=== PATIENT | female | born 1940 | race Caucasian/White ===

== ENCOUNTER 2022-10-30 01:48 | Inpatient (IN) | payer MEDICARE ==
[~2022-10-30] VITALS: Ht 152.4 cm; Wt 40.8 kg
--- NOTE | 2022-10-30 02:00 | NUR ---
ALAN TREVINO BROUGHT D/T AGITATION, VERBAL AND PHYSICAL AGGRESSION TO STAFF. PT AO X 2, BREATHING UNLABORED, CALM AND COOPERATIVE AT THIS TIME. PT ATTACHED TO MONITOR AND PULSE OX. AWAITING MD HAZEL.
--- NOTE | 2022-10-30 02:12 | NUR ---
COVID SWAB DONE AND SENT TO LAB
--- NOTE | 2022-10-30 02:25 | NUR ---
URINE COLLECTED, SENT TO LAB
[2022-10-30 02:41] LABS: BASOPHILS % (AUTO) 0.3 % (0.0-2.0); EOSINOPHILS % (AUTO) 1.9 % (0.0-6.0); HEMATOCRIT 41 % (33-45); HEMOGLOBIN 13.4 g/dL (11.5-14.8); LYMPHOCYTES # (AUTO) 0.8 K/uL (0.8-4.8); LYMPHOCYTES % (AUTO) 12.8 % (20.0-44.0); MEAN CORPUSCULAR HGB CONC 33 g/dl (31.0-36.0); MEAN CORPUSCULAR VOLUME 96 fL (82-100); MONOCYTES # (AUTO) 0.6 K/uL (0.1-1.30); MONOCYTES % (AUTO) 9.3 % (2.0-12.0); NEUTROPHILS # (AUTO) 4.8 K/uL (1.8-8.9); NEUTROPHILS % (AUTO) 75.7 % (43.0-81.0); PLATELET COUNT (AUTO) 315 K/uL (150-450); RED BLOOD CELL COUNT(AUTO) 4.22 MIL/uL (4.0-5.2); WHITE BLOOD COUNT (AUTO) 6.4 K/uL (4.3-11.0)
[2022-10-30 02:48] LABS: BILIRUBIN,URINE NEGATIVE (NEGATIVE); COLOR,URINE YELLOW (YELLOW); LEUKOCYTE ESTERASE ,URINE NEGATIVE (NEGATIVE); NITRITE, URINE NEGATIVE (NEGATIVE); PROTEIN,URINE NEGATIVE (NEGATIVE); UGLUCOSE NEGATIVE (NEGATIVE); UROBILINOGEN,URINE 0.2 EU/dL (0.2)
[2022-10-30 03:00] LABS: CALCIUM, SERUM 9.2 mg/dL (8.5-10.1); CARBON DIOXIDE 26 mmol/L (21-32); CHLORIDE 108 mmol/L (98-107); CREATININE 0.7 mg/dL (0.6-1.3); GLUCOSE 116 mg/dL (74-106); SODIUM SERUM 140 mmol/L (136-145); UREA NITROGEN, BLOOD 22 mg/dL (7-18)
[2022-10-30 03:05] LABS: ALANINE AMINOTRANSFERASE 45 U/L (12-78); ALBUMIN 3.2 g/dL (3.4-5.0); ALCOHOL, BLOOD < 3 mg/dL (0-0); ALKALINE PHOSPHATASE 50 U/L (46-116); ASPARTATE AMINOTRANSFERASE 26 U/L (15-37); BILIRUBIN,DIRECT 0.1 mg/dL (0.0-0.2); BILIRUBIN,TOTAL 0.2 mg/dL (0.2-1.0); TOTAL PROTEIN, SERUM 6.8 g/dL (6.4-8.2)
[2022-10-30 03:13] LABS: ACETAMINOPHEN 0 ug/ml (10-30)
--- NOTE | 2022-10-30 03:33 | NUR ---
FADI OSUNA CALLED FOR PSYCH EVAL. WILL BE COMING IN AN HOUR
--- NOTE | 2022-10-30 04:11 | NUR ---
RM 219-1
--- NOTE | 2022-10-30 05:15 | NUR ---
FADI OSUNA AT BEDSIDE FOR EVAL
--- NOTE | 2022-10-30 05:25 | NUR ---
REPORT GIVEN TO TOYA WHITLEY FOR CONTINUATION OF CARE
--- NOTE | 2022-10-30 05:25 | NUR ---
Rody jeong in [facility] - 10/30/22 at 0549 by REGINALD REPORT GIVEN TO TOYA WHITLEY FOR CONTINUATION OF CARE
[2022-10-30] MEDS ORDERED: LOSARTAN POTASSIUM 50 MG TABLET ONE (05:29)
[2022-10-30] MEDS ORDERED: SENN-261 PO (05:57)
[2022-10-30] MEDS ORDERED: ACET-73 PO (05:57)
[2022-10-30] MEDS ORDERED: MAGN24002 PO (05:57)
[2022-10-30] MEDS ORDERED: LEVO200T8 PO (05:57)
[2022-10-30] MEDS ORDERED: CEPH500C2 PO (05:57)
[2022-10-30] MEDS ORDERED: HYDR-4076 PO (05:57)
[2022-10-30] MEDS ORDERED: DOCU100C36 PO (05:57)
[2022-10-30] MEDS ORDERED: OLAN5TAB3 PO (05:57)
[2022-10-30] MEDS ORDERED: LOSA50TA3 PO (05:57)
[2022-10-30] MEDS ORDERED: ONDA4TAB5 PO (05:57)
--- NOTE | 2022-10-30 05:58 | NUR ---
PT TRASNFERRED TO GPS 119-1, RN AND EMT AT BEDSIDE.
--- NOTE | 2022-10-30 06:14 | NUR ---
RN NOTES : ADMISSION NOTES: ADMITTED THIS 82Y/O FEMALE PATIENT ADMITTED FROM [facility], INITIALLY FROM [facility]. ADMITTED TO 5150 HOLD PER HOLD GD ,PT. INCREASED AGGRESSIVE BEHAVIOR AT ALF , UPON FACE TO FACE ASSESSMENT PATIENT IS A&OX1 , ANXIOUS EASILY AGITATED ,DISORGNIZED, DISHELVED,UNCOOPERTIVE,POOR DECISION MAKING,DENIES SI /HI AT THIS TIME, PT. IS POOR HISTORIAN, POOR INSIGHT ,POOR JUDGEMENT , BOTH MD AWARE AND NOTIFIED OF THE ADMISSION, BELONGINGS CONTRABAND WERE DONE , PT. REFUSED SIGNS ADMISSION CONSENT PAPER DUE TO CONFUSED,DISORGNIZED , PT. RIGHTS DISCUSS BY FIRE LOOKOUT , PROVIDE THE PT. WITH HANDBOOK, AND MEDICATIONS GUIDE, ENVIRONMENTAL SAFETY CHECK DONE, ENCOURAGED PT. VERBALIZED ANY FEELING CONCERN TO STAFF, ORIENT TO UNIT POLICY, NO ACUTE DISTRESS NOTED,VITAL SIGNS WNL ,DENIES ANY PAIN AT THIS TIME,WILL CONTINUE TO MONITOR FOR Q15 SAFETY AND BEHAVIOR.
--- NOTE | 2022-10-30 06:23 | NUR ---
RN NOTES: REFUSED SKIN ASSESSMENT AND ACCU CHECK PT. REFUSED FULL BODY SKIN ASSESSMENT AND PHOTOS TAKEN, AND REFUSED INTIALLY BLOOD SUGAR CHECK , ENCOURAGED X3 BUT PT. STRONGLY REFUSED , PT.BRHAVIOUR UNCOOPERTIVE , PARANOID ANXIOUS .
[2022-10-30 06:24] VITALS: BP 135/75
[2022-10-30] MEDS ORDERED: MAG HYDROX/AL HYDROX/SIMETH 30 ML UDC PO PRN (06:30)
[2022-10-30] MEDS ORDERED: MAGNESIUM HYDROXIDE 30 ML UDC PO PRN ×2 (06:30→11:00)
[2022-10-30] MEDS ORDERED: ACETAMINOPHEN 325 MG TABLET PO PRN (06:30)
[2022-10-30] MEDS ORDERED: ZOLPIDEM TARTRATE 5 MG TABLET PO PRN (06:30)
--- NOTE | 2022-10-30 06:57 | NUR ---
RN NOTES: PATIENT IS A&OX1 , ANXIOUS EASILY, AGITATED ,DISORGNIZED, DISHELVED,UNCOOPERTIVE,POOR DECISION MAKING, WANDRING IN HER ROOM AND UNIT ,FORGETFUL CONFUSED POOR INSIGHT ,POOR JUDGEMENT ,, NON REDIRECTABLE , NEEDS FREQUENTLY REDIRECTIONS , SAFETY PRECAUTIONS MAINTAIN, WILL CONTINUITY WITH CARE. . ENDORSE TO ON COMING NURSE FOR COMPLETE THE ALL ADMISSION PROCESS .
[2022-10-30] MEDS ORDERED: BLOOD SUGAR DIAGNOSTIC 1 EACH STRIP IN ONE (07:30)
[2022-10-30 08:00] VITALS: BP 155/56
[2022-10-30] MEDS ORDERED: LOSARTAN POTASSIUM 50 MG TABLET PO SCH (09:00)
[2022-10-30] MEDS ORDERED: MAGN400O6 PO (10:44)
[2022-10-30] MEDS ORDERED: ONDANSETRON 4 MG TAB.RAPDIS SL PRN (11:00)
[2022-10-30] MEDS ORDERED: ACETAMINOPHEN ES 500 MG TABLET PO PRN (11:00)
[2022-10-30] MEDS ORDERED: hydrALAZINE HCL 25 MG TABLET PO PRN (11:00)
[2022-10-30] MEDS: QUETIAPINE FUMARATE 25 MG TABLET PO SCH ×2 (11:25→20:18)
[2022-10-30 12:14] LABS: THYROID STIMULATING HORMONE 15.151 uIU/mL (0.358-3.74)
[2022-10-30 16:00] VITALS: BP 147/71
[2022-10-30] MEDS: LORAZEPAM 0.5 MG TABLET PO PRN (17:29)
[2022-10-30] MEDS: ENSURE ENLIVE 237 ML LIQUID (VANILLA) PO SCH (17:30)
[2022-10-30] MEDS: SENNOSIDES 8.6 MG TABLET PO SCH (17:30)
[2022-10-30] MEDS: DOCUSATE SODIUM 100 MG CAPSULE PO SCH (17:30)
--- NOTE | 2022-10-30 17:30 | NUR ---
NURSE NOTE: PT AGITATED AT THIS TIME, WANDERING, RESTLESS, GOING INTO OTHER PEOPLES ROOM. TRIED TO REDIRECT, BUT PT UNABLE TO. ATIVAN PO ADMINISTERED ORDERED. WILL CONT TO MONITOR.
--- NOTE | 2022-10-30 18:30 | NUR ---
NURSE NOTE: PT CALMER AT THIS TIME, BUT STILL ANXIOUS. WILL CONT TO MONITOR.
--- NOTE | 2022-10-30 18:35 | NUR ---
NURSE NOTE: PT REFUSED MEDS THIS AM AND ALSO REFUSED PM RISPERDOL. ENCOURAGED PT TO TAKE, BUT PT REFUSED. Addendum: 10/30/22 at 1921 by SINGH ADAMS RN ERROR WRONG PT.
[2022-10-30 20:10] VITALS: BP 139/68
[2022-10-31] MEDS: LORAZEPAM 0.5 MG TABLET PO PRN ×3 (00:12→16:06)
[2022-10-31 07:16] LABS: CALCIUM, SERUM 8.8 mg/dL (8.5-10.1); CREATININE 0.7 mg/dL (0.6-1.3); POTASSIUM 3.3 mmol/L (3.5-5.1)
--- NOTE | 2022-10-31 07:35 | NUR ---
NURSE NOTE: PT ANXIOUS/AGITATED AT THIS TIME. YELLING OUT FOR "JENNIFER". ATIVAN PO ADMINISTERED ORDERED. PT MARTIN WELL. WILL CONT TO MONITOR.
[2022-10-31] MEDS: LEVOTHYROXINE SODIUM 175 MCG TABLET PO SCH (07:37)
[2022-10-31 07:42] LABS: BASOPHILS % (AUTO) 0.5 % (0.0-2.0); EOSINOPHILS % (AUTO) 2.5 % (0.0-6.0); HEMATOCRIT 36 % (33-45); LYMPHOCYTES # (AUTO) 0.7 K/uL (0.8-4.8); LYMPHOCYTES % (AUTO) 10.1 % (20.0-44.0); MEAN CORPUSCULAR HGB CONC 33 g/dl (31.0-36.0); MEAN CORPUSCULAR VOLUME 97 fL (82-100); MONOCYTES # (AUTO) 0.8 K/uL (0.1-1.30); MONOCYTES % (AUTO) 11.6 % (2.0-12.0); NEUTROPHILS # (AUTO) 5.1 K/uL (1.8-8.9); NEUTROPHILS % (AUTO) 75.3 % (43.0-81.0); PLATELET COUNT (AUTO) 280 K/uL (150-450); RED BLOOD CELL COUNT(AUTO) 3.75 MIL/uL (4.0-5.2); WHITE BLOOD COUNT (AUTO) 6.8 K/uL (4.3-11.0)
[2022-10-31 08:00] VITALS: BP 126/59
[2022-10-31] MEDS: ENSURE ENLIVE 237 ML LIQUID (VANILLA) PO SCH ×2 (08:21→17:41)
[2022-10-31] MEDS: ESCITALOPRAM OXALATE (10 MG) 10 MG TABLET PO SCH (08:22)
[2022-10-31] MEDS: DOCUSATE SODIUM 100 MG CAPSULE PO SCH ×2 (08:22→16:08)
[2022-10-31] MEDS: LOSARTAN POTASSIUM 50 MG TABLET PO SCH (08:23)
[2022-10-31] MEDS: QUETIAPINE FUMARATE 25 MG TABLET PO SCH ×2 (08:24→20:01)
--- NOTE | 2022-10-31 08:30 | NUR ---
NURSE NOTE: PT CALM AT THIS TIME. ATIVAN EFFECTIVE. WILL CONT TO MONITOR.
[2022-10-31] MEDS ORDERED: POTASSIUM CHLORIDE 20 MEQ TAB.PRT.SR PO SCH (10:30)
--- NOTE | 2022-10-31 11:45 | NUR ---
NURSE NOTE: ATTEMPTED TO GET POTASSIUM CHLORIDE OUT OF [facility], BUT UNABLE TO. SPOKE WITH PHARMACY AND WILL SENIOR VALIDATION ENGINEER DOSE DOWN THERE.
--- NOTE | 2022-10-31 11:53 | NUR ---
BEV Initial Discharge Note: Patient currently resides at [facility] [address] [id number]; ([phone]). Pt's daughter Tracey ([phone]) is involved in pt's care. She is the DPOA and SW placed it in the chart. Daughter stated family is currently searching for a memory care unit in [place]. BEV will work with the MD, family, and pt to help coordinate appropriate discharge.
--- NOTE | 2022-10-31 11:53 | NUR ---
Treatment Plan: Pt refused to sign treatment plan due to confusion.
--- NOTE | 2022-10-31 11:53 | NUR ---
BEV Clinical Note: Pt placed on a 5150 hold for GD. Per hold, pt has been aggressive at her facility. [place] [address]; ([phone]). Pt's daughter Tracey ([phone]) is involved in pt's care. She is the DPOA and SW placed it in the chart. Daughter stated family is currently searching for a memory care unit in [place].
--- NOTE | 2022-10-31 11:57 | NUR ---
BEV Family Contact: Pt's daughter Tracey ([phone]) is involved in pt's care. She is the DPOA and SW placed it in the chart. Daughter stated family is currently searching for a memory care unit in [place]. SW discussed treatment/discharge plan with daughter.
--- NOTE | 2022-10-31 12:04 | NUR ---
Facility Contact: SW contacted [facility] ([phone]) and spoke with Duran falcon who stated pt is welcomed back.
[2022-10-31 16:00] VITALS: BP 113/54
--- NOTE | 2022-10-31 16:10 | NUR ---
NURSE NOTE: PT ANXIOUS AT THIS TIME. BANGING ON TABLE. ATIVAN PO ADMINISTERED ORDERED. PT MARTIN WELL. WILL CONT TO MONITOR.
--- NOTE | 2022-10-31 17:00 | NUR ---
NURSE NOTE: PT CALM AT THIS TIME, ATIVAN EFFECTIVE AT THIS TIME.
[2022-10-31] MEDS: SENNOSIDES 8.6 MG TABLET PO SCH (17:42)
[2022-10-31 20:05] VITALS: BP 127/66
--- NOTE | 2022-11-01 05:00 | NUR ---
RN NOTE PATIENT ASLEEP IN BED THROUGHOUT THE NIGHT. PATIENT WOKE UP AT THIS TIME AND HAD LARGE BOWEL MOVEMENT. GOOD PERICARE RENDERED. PATIENT NOTED WITH REDNESS ON HER RIGHT AND LEFT BUTTOCK. PHOTOS TAKEN AND PLACED IN THE CHART. NOTIFIED CASAN WITH NEW ORDER OF WOUND CARE CONSULT. CHARGE NURSE AWARE AND MELTER CLERK WELL. WILL TURN AND REPOSITION PATIENT PER PROTOCOL.
[2022-11-01] MEDS: Z GUARD REMEDY 4 OZ OINT TP SCH ×3 (05:37→21:10)
[2022-11-01 08:00] VITALS: BP 141/64
[2022-11-01] MEDS: LEVOTHYROXINE SODIUM 175 MCG TABLET PO SCH (08:12)
[2022-11-01] MEDS: DOCUSATE SODIUM 100 MG CAPSULE PO SCH ×2 (08:12→17:11)
[2022-11-01] MEDS: QUETIAPINE FUMARATE 25 MG TABLET PO SCH ×2 (08:13→21:09)
[2022-11-01] MEDS: ESCITALOPRAM OXALATE (10 MG) 10 MG TABLET PO SCH (08:13)
[2022-11-01] MEDS: LOSARTAN POTASSIUM 50 MG TABLET PO SCH (08:13)
[2022-11-01] MEDS: ENSURE ENLIVE 237 ML LIQUID (VANILLA) PO SCH ×2 (08:27→17:24)
--- NOTE | 2022-11-01 10:13 | NUR ---
[facility] Document: Dr. Sánchez filled out forms for GEORGIE Webb ([phone]) and for her brother pt's son Carlos. BEV gave documents to Zina and placed a copy in the chart.
[2022-11-01 16:00] VITALS: BP 102/53
[2022-11-01] MEDS: SENNOSIDES 8.6 MG TABLET PO SCH (17:11)
[2022-11-01 20:04] VITALS: BP 125/60
[2022-11-02 08:00] VITALS: BP 145/80
[2022-11-02] MEDS: LEVOTHYROXINE SODIUM 175 MCG TABLET PO SCH (08:27)
--- NOTE | 2022-11-02 08:28 | NUR ---
WOUND CARE CONSULT: CONSULT RECEIVED FOR RT/LEFT BUTTOCK REDNESS. NO REDNESS NOTED BUT PT IS VERY THIN AND BONY. DISCUSSED SKIN PROTECTION WITH NURSING STAFF. IN AGREEMENT WITH PLAN OF CARE.
[2022-11-02] MEDS: ENSURE ENLIVE 237 ML LIQUID (VANILLA) PO SCH ×2 (08:29→17:55)
[2022-11-02] MEDS: QUETIAPINE FUMARATE 25 MG TABLET PO SCH ×2 (08:55→21:36)
[2022-11-02] MEDS: DOCUSATE SODIUM 100 MG CAPSULE PO SCH ×2 (08:55→17:00)
[2022-11-02] MEDS: ESCITALOPRAM OXALATE (10 MG) 10 MG TABLET PO SCH (08:55)
[2022-11-02] MEDS: LOSARTAN POTASSIUM 50 MG TABLET PO SCH (08:55)
[2022-11-02] MEDS: Z GUARD REMEDY 4 OZ OINT TP SCH ×2 (09:56→21:37)
--- NOTE | 2022-11-02 10:13 | NUR ---
LETTER: PER PT'S DAUGHTER KALIN EDWARDS ([phone]) REQUESTED A LETTER FROM THE PSYCHIATRIST THAT PT IS NOT CAPABLE OF MANAGING HER FINANCES. DR. WEINBERG AND THIS GROUND WATER TECHNICIAN WROTE A LETTER PT IS NOT CAPABLE OF MANAGING FIANCES AT THIS THIS TIME. SW PLACED A COPY IN THE CHART.
--- NOTE | 2022-11-02 10:29 | NUR ---
Court Notification: SW contacted pt's daughter JERRY Izaguirre ([phone]) and notified of 5250 hearing.
--- NOTE | 2022-11-02 10:45 | NUR ---
Court Hearing: Patient's court hearing for 7930 was today and it was upheld for GD.
[2022-11-02 16:00] VITALS: BP 125/66
[2022-11-02] MEDS: SENNOSIDES 8.6 MG TABLET PO SCH (17:56)
[2022-11-02 20:43] VITALS: BP 151/73
[2022-11-02] MEDS: ATORVASTATIN 10 MG TABLET PO SCH (21:36)
[2022-11-03] MEDS: LEVOTHYROXINE SODIUM 175 MCG TABLET PO SCH (07:46)
[2022-11-03 08:00] VITALS: BP 124/50
[2022-11-03] MEDS: DOCUSATE SODIUM 100 MG CAPSULE PO SCH ×2 (08:23→16:42)
[2022-11-03] MEDS: ESCITALOPRAM OXALATE (10 MG) 10 MG TABLET PO SCH (08:23)
[2022-11-03] MEDS: QUETIAPINE FUMARATE 25 MG TABLET PO SCH ×2 (08:23→21:34)
[2022-11-03] MEDS: LOSARTAN POTASSIUM 50 MG TABLET PO SCH (08:24)
[2022-11-03] MEDS: ENSURE ENLIVE 237 ML LIQUID (VANILLA) PO SCH ×2 (08:45→17:19)
[2022-11-03] MEDS: Z GUARD REMEDY 4 OZ OINT TP SCH ×2 (08:48→21:34)
--- NOTE | 2022-11-03 10:25 | NUR ---
RN Notes: Received pt. asleep in bed, breathing is even and unlabored. Ate 100% for breakfast and compliant on meds. Pt. is confused and disoriented, was reoriented to person, place, date, date and situation and encouraged to participate on group activity. Needs attended and will continue to monitor for safety.
[2022-11-03] MEDS: LORAZEPAM 0.5 MG TABLET PO PRN (12:47)
--- NOTE | 2022-11-03 12:47 | NUR ---
pt is anxious, and slightly agitated. expert medical writer gave pt ativan 0.5mg. will continue to olga.
--- NOTE | 2022-11-03 13:47 | NUR ---
Facility Contact: BEV received a call from Pati Nguyen Director, [facility], , requesting clinicals to be faxed to ([phone]). SW sent H & P, progress notes, and medication list.
[2022-11-03 16:00] VITALS: BP 145/69
[2022-11-03] MEDS: SENNOSIDES 8.6 MG TABLET PO SCH (17:19)
--- NOTE | 2022-11-03 19:30 | NUR ---
GPS RN NOTE, RECEIVED PATIENT AWAKE AND IN BED, NO S/S OR COMPLAINTS OF PAIN AT THIS TIME. PATIENT IS DISPLAYING NO S/S OF APPARENT DISTRESS AT THIS TIME. PATIENT BREATHING IS UNLABORED WITH EQUAL RISE AND FALL OF THE CHEST. PATIENT IS ALERT AND ORIENTED X 1 ON ROOM AIR WITH A SPO2 99%. PATIENT IS COMPLIANT WITH MEDICATION, ANXIOUS, RESTLESS, PARANOID AT TIMES, CONFUSED, AND COOPERATIVE. PATIENT DENIES SUICIDAL AND HOMICIDAL IDEATIONS AT THIS TIME. PATIENT ASSISTED WITH TURNING AND REPOSITIONING Q2HR AND PRN FOR COMFORT AND CIRCULATION. PATIENT HAS NO NEEDS AT THIS TIME. PATIENT EDUCATED ON THE USE OF THE CALL ALDANA. PATIENT BED SIDE RAILS UP X 2 FOR SAFETY. PATIENT BED IS LOCKED AND LOW. WILL CONTINUE TO MONITOR THIS PATIENT Q15 MINUTES WITH THE HELP OF STAFF TO MAINTAIN SAFETY.
[2022-11-03 20:22] VITALS: BP 124/71
[2022-11-03] MEDS: ATORVASTATIN 10 MG TABLET PO SCH (21:34)
[2022-11-04 08:00] VITALS: BP 111/60
[2022-11-04] MEDS: DOCUSATE SODIUM 100 MG CAPSULE PO SCH ×2 (08:08→17:00)
[2022-11-04] MEDS: LOSARTAN POTASSIUM 50 MG TABLET PO SCH (08:09)
[2022-11-04] MEDS: ENSURE ENLIVE 237 ML LIQUID (VANILLA) PO SCH ×2 (08:10→17:11)
[2022-11-04] MEDS: Z GUARD REMEDY 4 OZ OINT TP SCH ×2 (08:10→20:30)
[2022-11-04] MEDS: ESCITALOPRAM OXALATE (10 MG) 10 MG TABLET PO SCH (08:12)
[2022-11-04] MEDS: QUETIAPINE FUMARATE 25 MG TABLET PO SCH ×2 (08:12→20:29)
[2022-11-04] MEDS: LEVOTHYROXINE SODIUM 175 MCG TABLET PO SCH (08:12)
[2022-11-04] MEDS: LORAZEPAM 0.5 MG TABLET PO PRN ×2 (12:35→22:41)
[2022-11-04 16:00] VITALS: BP 128/63
[2022-11-04] MEDS: SENNOSIDES 8.6 MG TABLET PO SCH (17:11)
--- NOTE | 2022-11-04 19:38 | NUR ---
RN NOTES: PATIENT RESTING IN ROOM,A/OX1 BREATHING EVEN AND UNLABORED WITH NO S/S OF DISTRESS. PATIENT IS ANXIOUS, GUARDED, PARNOID, HYPERVERBAL ,CONFUSED FORGETFUL , UNCCOPERTIVE NEEDY PATIENT IS MEDICATION COMPLIANT. ENCOURAGED PATIENT TO VERBALIZED ANY FEELING OR CONCERN . DENIES SI/HI AND AUDITORY/VISUAL HALLUCINATIONS AT THIS TIME. WILL CONTINUE TO MONITOR Q 15 MINUTES FOR SAFETY AND BEHAVIOR.
[2022-11-04 20:00] VITALS: BP 144/72
[2022-11-04] MEDS: ATORVASTATIN 10 MG TABLET PO SCH (22:10)
--- NOTE | 2022-11-04 22:42 | NUR ---
RN NOTES: ANXIETY PT.UNCOOPERTIVE SCREAMING YELLING , VERY ANXIOUS NON REDIREECTABLE PRN ATIVAN 0.5 MG PO GIVEN WILL CONTINUE TO MONITOR.
--- NOTE | 2022-11-05 05:47 | NUR ---
RN NOTES: PATIENT RESTING IN ROOM AND 7 HOURS OF SLEEP NO S/SX OF ACUTE DISTRESS NOTED. PATIENT ANXIOUS EASILY AGITATED, CONFUSED ,PARANOID,DISORGNIZED, HYPERVERBAL, FORGETFUL ,MED COMPLIANT , COOPERATIVE TO CARE.ALL NEEDS ATTENDED AND ANTICIPATED, NEEDS FREQUENTLY REDIRECTIONS, DENIES SI/HI/AVH AT THIS TIME. SAFETY PRECAUTIONS MAINTAINED. ENCOURAGED TO VERBALIZED ANY FEELING OR CONCERN ,WILL CONTINUE TO MONITOR Q15MIN ROUNDS FOR SAFETY AND BEHAVIOR.
[2022-11-05 08:00] VITALS: BP 145/73
[2022-11-05] MEDS: DOCUSATE SODIUM 100 MG CAPSULE PO SCH ×2 (08:22→17:00)
[2022-11-05] MEDS: ENSURE ENLIVE 237 ML LIQUID (VANILLA) PO SCH ×2 (09:16→17:13)
[2022-11-05] MEDS: LEVOTHYROXINE SODIUM 175 MCG TABLET PO SCH (09:18)
[2022-11-05] MEDS: ESCITALOPRAM OXALATE (10 MG) 10 MG TABLET PO SCH (09:18)
[2022-11-05] MEDS: QUETIAPINE FUMARATE 25 MG TABLET PO SCH ×2 (09:19→21:07)
[2022-11-05] MEDS: LOSARTAN POTASSIUM 50 MG TABLET PO SCH (09:19)
[2022-11-05] MEDS: Z GUARD REMEDY 4 OZ OINT TP SCH ×2 (09:20→20:47)
[2022-11-05 16:00] VITALS: BP 106/53
[2022-11-05] MEDS: SENNOSIDES 8.6 MG TABLET PO SCH (17:13)
[2022-11-05 20:20] VITALS: BP 125/60
[2022-11-05] MEDS: LORAZEPAM 0.5 MG TABLET PO PRN (20:22)
--- NOTE | 2022-11-05 20:24 | NUR ---
RN NOTES : ANXIETY PT. NOTED RESTLESS VERY ANXIOUS NON REDIREECTABLE PRN ATIVAN 0.5 MG PO GIVEN WILL CONTINUE TO MONITOR.
[2022-11-05] MEDS: ATORVASTATIN 10 MG TABLET PO SCH (21:07)
[2022-11-06 08:00] VITALS: BP 98/49
[2022-11-06] MEDS: DOCUSATE SODIUM 100 MG CAPSULE PO SCH ×2 (08:48→16:55)
[2022-11-06] MEDS: Z GUARD REMEDY 4 OZ OINT TP SCH ×2 (08:49→20:08)
[2022-11-06] MEDS: LOSARTAN POTASSIUM 50 MG TABLET PO SCH (08:49)
[2022-11-06] MEDS: ENSURE ENLIVE 237 ML LIQUID (VANILLA) PO SCH ×2 (08:49→16:55)
[2022-11-06] MEDS: QUETIAPINE FUMARATE 25 MG TABLET PO SCH ×2 (08:51→20:08)
[2022-11-06] MEDS: ESCITALOPRAM OXALATE (10 MG) 10 MG TABLET PO SCH (08:51)
[2022-11-06] MEDS: LEVOTHYROXINE SODIUM 175 MCG TABLET PO SCH (08:51)
[2022-11-06 16:00] VITALS: BP 117/68
[2022-11-06] MEDS: SENNOSIDES 8.6 MG TABLET PO SCH (16:55)
--- NOTE | 2022-11-06 19:30 | NUR ---
RN OPENING NOTES RECEIVED PATIENT AWAKE IN BED. AMBULATORY. GOT CONFUSED WITH THE ROM. A/O TIMES 1. COOPERATIVE. FORGETFUL. ABLE TO MAKE NEEDS KNOWN. ALL NEEDS ATTENDED. NO ANXIETY NOTED. NO DISTRESS NOTED. ALL SAFETY MEASURES IN PLACE. BED LOCKED IN THE LOWEST POSITION. TABLE IN EASY REACH. SIDE RAILS UP TIMES 2. WILL CONTINUE TO MONITOR CLOSELY.
[2022-11-06 20:27] VITALS: BP 117/68
[2022-11-06] MEDS: ATORVASTATIN 10 MG TABLET PO SCH (21:01)
[2022-11-07] MEDS: LEVOTHYROXINE SODIUM 175 MCG TABLET PO SCH (07:41)
[2022-11-07] MEDS: ENSURE ENLIVE 237 ML LIQUID (VANILLA) PO SCH ×2 (07:42→17:12)
[2022-11-07 08:00] VITALS: BP 144/67
[2022-11-07] MEDS: QUETIAPINE FUMARATE 25 MG TABLET PO SCH ×2 (08:56→20:25)
[2022-11-07] MEDS: ESCITALOPRAM OXALATE (10 MG) 10 MG TABLET PO SCH (08:56)
[2022-11-07] MEDS: DOCUSATE SODIUM 100 MG CAPSULE PO SCH ×2 (08:56→17:11)
[2022-11-07] MEDS: LOSARTAN POTASSIUM 50 MG TABLET PO SCH (08:57)
[2022-11-07] MEDS: Z GUARD REMEDY 4 OZ OINT TP SCH ×2 (09:48→20:27)
--- NOTE | 2022-11-07 11:12 | NUR ---
SW Family Contact: Pt's daughter Tracey ([phone]) stated that she had found a facility [facility] but stated it might take some time to get the financial part ready. She stated that if this does not work she would want pt back to [facility] if accepting back until she has everything set at [place].
[2022-11-07 16:00] VITALS: BP 117/58
[2022-11-07] MEDS: SENNOSIDES 8.6 MG TABLET PO SCH (17:51)
[2022-11-07 19:47] VITALS: BP 139/83
[2022-11-07] MEDS: ATORVASTATIN 10 MG TABLET PO SCH (21:19)
[2022-11-08 08:00] VITALS: BP 111/65
[2022-11-08] MEDS: ENSURE ENLIVE 237 ML LIQUID (VANILLA) PO SCH ×2 (08:14→17:14)
[2022-11-08] MEDS: ESCITALOPRAM OXALATE (10 MG) 10 MG TABLET PO SCH (08:52)
[2022-11-08] MEDS: LEVOTHYROXINE SODIUM 175 MCG TABLET PO SCH (08:53)
[2022-11-08] MEDS: DOCUSATE SODIUM 100 MG CAPSULE PO SCH ×2 (08:53→16:31)
[2022-11-08] MEDS: LOSARTAN POTASSIUM 50 MG TABLET PO SCH (08:54)
[2022-11-08] MEDS: QUETIAPINE FUMARATE 25 MG TABLET PO SCH ×2 (08:56→21:19)
[2022-11-08] MEDS: Z GUARD REMEDY 4 OZ OINT TP SCH ×2 (09:57→21:21)
[2022-11-08 16:00] VITALS: BP 130/97
[2022-11-08] MEDS: SENNOSIDES 8.6 MG TABLET PO SCH (17:14)
[2022-11-08 20:08] VITALS: BP 140/57
[2022-11-08] MEDS: ATORVASTATIN 10 MG TABLET PO SCH (21:19)
[2022-11-09 08:00] VITALS: BP 150/79
[2022-11-09] MEDS: QUETIAPINE FUMARATE 25 MG TABLET PO SCH ×2 (08:11→20:41)
[2022-11-09] MEDS: DOCUSATE SODIUM 100 MG CAPSULE PO SCH ×2 (08:12→16:56)
[2022-11-09] MEDS: LOSARTAN POTASSIUM 50 MG TABLET PO SCH (08:12)
[2022-11-09] MEDS: ESCITALOPRAM OXALATE (10 MG) 10 MG TABLET PO SCH (08:12)
[2022-11-09] MEDS: LEVOTHYROXINE SODIUM 175 MCG TABLET PO SCH (08:12)
[2022-11-09] MEDS: ENSURE ENLIVE 237 ML LIQUID (VANILLA) PO SCH ×2 (08:13→17:29)
[2022-11-09] MEDS: Z GUARD REMEDY 4 OZ OINT TP SCH ×2 (08:13→20:45)
[2022-11-09] MEDS: LORAZEPAM 0.5 MG TABLET PO PRN (14:31)
--- NOTE | 2022-11-09 14:31 | NUR ---
NURSE NOTE: PT ANXIOUS AT THIS TIME, TELLING THE RAILROAD INSPECTOR THAT SHE WAS GOING TO CALL THE POLICE. ATIVAN PO ADMINISTERED ORDERED. PT MARTIN WELL. WILL CONT TO MONITOR.
--- NOTE | 2022-11-09 15:30 | NUR ---
NURSE NOTE: PT CALMER NOW. STILL A LITTLE RESTLESS. ATIVAN SL EFFECTIVE. WILL CONT TO MONITOR.
[2022-11-09 16:00] VITALS: BP 120/71
--- NOTE | 2022-11-09 17:00 | NUR ---
NURSE NOTE: PT HAVING LOOSE STOOLS. DR ASTUDILLO NOTIFIED AND DC'D STOOL SOFTENERS. REDNESS NOTED TO AREA, WOUND CONSULT ORDERED. WILL CONT TO MONITOR.
[2022-11-09] MEDS: SENNOSIDES 8.6 MG TABLET PO SCH (17:30)
--- NOTE | 2022-11-09 19:25 | NUR ---
RN notes Received Pt from morning nurse. Pt is resting in bed comfortably. Pt is alert and orientedX1, anxious, guarded, isolative and disorganized. VS is stable. On room air. No S/S of distress noted. No SOB. Snacks is offered. Reality orientation provided and encouragement. safety precautions is maintained. Will continue to monitor Q 15 mins checks for safety and behavior.
[2022-11-09] MEDS: ATORVASTATIN 10 MG TABLET PO SCH (20:41)
[2022-11-09 21:00] VITALS: BP 142/82
[2022-11-10 08:00] VITALS: BP 134/78
[2022-11-10] MEDS: LEVOTHYROXINE SODIUM 175 MCG TABLET PO SCH (08:29)
[2022-11-10] MEDS: ESCITALOPRAM OXALATE (10 MG) 10 MG TABLET PO SCH (08:29)
[2022-11-10] MEDS: LOSARTAN POTASSIUM 50 MG TABLET PO SCH (08:29)
[2022-11-10] MEDS: ENSURE ENLIVE 237 ML LIQUID (VANILLA) PO SCH ×2 (08:29→17:25)
[2022-11-10] MEDS: QUETIAPINE FUMARATE 25 MG TABLET PO SCH ×2 (08:29→21:35)
[2022-11-10] MEDS: Z GUARD REMEDY 4 OZ OINT TP SCH ×2 (08:32→21:35)
[2022-11-10 16:00] VITALS: BP 135/68
--- NOTE | 2022-11-10 18:09 | NUR ---
RN-NOTES PATIENT IS VISIBLE IN THE UNIT ,GUARDED,A/O X1 NEEDS MODERATE ASSIST WITH AMBULATION AND ADL'S.NO ACUTE DISTRESS NOTED. COMPLIANT WITH MEDICATIONS. PATIENT QUIET,CALM AND COOPERATIVE WITH THE STAFF. NEEDS DIRECTIONS AND INSTRUCTIONS. ALL NEEDS ATTENDED AND ANTICIPATED. WILL CONT. MONITORING FOR SAFETY AND BEHAVIOR.WILL ENDORSE TO THE INCOMING NURSE FOR THE CONTINUITY OF CARE.
--- NOTE | 2022-11-10 19:30 | NUR ---
GPS RN OPENING NOTE RECEIVED PATIENT WALKING THE UNIT WITH FAMILY MEMBER. A/O X1, FLAT AFFECT AND ABLE TO MAKE NEEDS KNOWN. NO ACUTE DISTRESS NOTED AT THIS TIME. ALL NEEDS ATTENDED ANTICIPATED AT THIS TIME. WILL CONTINUE TO MONITOR FOR SAFETY AND BEHAVIOR.
[2022-11-10 20:53] VITALS: BP 130/62
[2022-11-10] MEDS: ATORVASTATIN 10 MG TABLET PO SCH (21:35)
[2022-11-11] MEDS: LEVOTHYROXINE SODIUM 175 MCG TABLET PO SCH (07:37)
--- NOTE | 2022-11-11 07:41 | NUR ---
WOUND CARE CONSULT: PT PRESENTS WITH SOME FECAL INCONTINENCE AND REDNESS TO GLUTEAL CREASE. RECOMMENDATIONS MADE FOR SKIN PROTECTION. DISCUSSED WITH NURSING STAFF.
[2022-11-11] MEDS: ENSURE ENLIVE 237 ML LIQUID (VANILLA) PO SCH (07:59)
[2022-11-11 08:00] VITALS: BP 123/64
--- NOTE | 2022-11-11 08:04 | NUR ---
SW Discharge Note: Patient will be discharged to [facility] [place] [address] [place] [address]; . Please arrange transportation at 1PM. Admissions Duran ([phone]) is aware of patients discharge. Patient is alert and oriented x1. Patient denies suicidal or homicidal ideation. Patient denies visual/auditory hallucinations. Patients DPOA Daughter Zina ([phone]) is aware and agreeable of discharge. Patient will follow up with Ore Roaster, Dr. Winkler at the facility [id number] [place] [id number]; who will monitor and provide patients psychotropic medications. Patient presents with euthymic mood and congruent affect.
[2022-11-11] MEDS: ESCITALOPRAM OXALATE (10 MG) 10 MG TABLET PO SCH (08:45)
[2022-11-11] MEDS: QUETIAPINE FUMARATE 25 MG TABLET PO SCH (08:45)
[2022-11-11 08:46] VITALS: BP 123/64
[2022-11-11] MEDS: LOSARTAN POTASSIUM 50 MG TABLET PO SCH (08:46)
--- NOTE | 2022-11-11 08:46 | NUR ---
Dr. Sánchez gave an order to D/C hold and D/C to [facility] and to continue same meds including prn.
[2022-11-11] MEDS: Z GUARD REMEDY 4 OZ OINT TP SCH (08:59)
--- NOTE | 2022-11-11 09:48 | NUR ---
Duran GARCIA made aware of the discharge and reconciled meds to continue in the facility.
--- NOTE | 2022-11-11 12:00 | NUR ---
RN NOTE REPORT GIVEN [facility] TO AKI WHITLEY.
--- NOTE | 2022-11-11 13:20 | NUR ---
SILVER DESIGNER NOTE PATIENT DISCHARGE TO [facility],SNF,IN STABLE CONDITION,ALERT ORIENTED X1-2 VERBALLY RESPONSIVE ON ROOM AIR O2:98%,NO SOB NOT ACUTE DISTRESS NOTED,PATIENT DENIES SUICIDAL IDEATION AND HOMICIDAL IDEATION,PATIENT LEFT HOSPITAL WITH 2 EMT FROM [facility],NOTIFIED PATIENT FAMILY.
== END 2022-11-11 13:20 | DRG 881 ==
LOC: ER 01:50 → GPS 05:19
PROVIDERS: ADMIT Psychiatry & Neurology Psychiatry; ATTEND Nurse Practitioner Acute Care
DX: F32.A Depression, unspecified (principal); E43 Unspecified severe protein-calorie malnutrition; F03.93 Unspecified dementia, unspecified severity, with mood disturbance; F03.92 Unspecified dementia, unspecified severity, with psychotic disturbance; Z68.1 Body mass index [BMI] 19.9 or less, adult; F03.94 Unspecified dementia, unspecified severity, with anxiety; F29 Unspecified psychosis not due to a substance or known physiological condition; I10 Essential (primary) hypertension; Z79.899 Other long term (current) drug therapy; E03.9 Hypothyroidism, unspecified; Z73.6 Limitation of activities due to disability; R79.89 Other specified abnormal findings of blood chemistry; F41.9 Anxiety disorder, unspecified
CPT/HCPCS: 36415; 70450-TC; 80048-TC; 80061-TC; 80076-TC; 82607-TC; 82962-TC; 84439-TC; 84443-TC; 84480; 85025-TC; 87081-TC; 97116-TC; 97530-TC; C9803; G0480

== ENCOUNTER 2022-11-12 19:20 | Inpatient (IN) | payer MEDICARE ==
[~2022-11-12] VITALS: Ht 152.4 cm; Wt 47.6 kg
[~2022-11-12 19:20] MED LIST: ACET-73 PO; CEPH500C2 PO; DOCU100C36 PO; HYDR-4076 PO; LEVO200T8 PO; LOSA50TA3 PO; MAGN400O6 PO; ONDA4TAB5 PO; SENN-261 PO
--- NOTE | 2022-11-12 19:45 | NUR ---
JUANA FROM [facility]. MEDICAL CLEARANCE FOR PSYCH EVAL FOR AGGRESSIVE BEHAVIOR. PLACED IN BED, AAOX3, CALM- COOPERATIVE WILL CONTINUE TO MONITOR.
--- NOTE | 2022-11-12 19:52 | NUR ---
MOVE SHEET SUBMITTED.
--- NOTE | 2022-11-12 20:00 | NUR ---
IT INTEGRATION ARCHITECT AT BEDSIDE
[2022-11-12 20:18] LABS: BASOPHILS % (AUTO) 0.6 % (0.0-2.0); EOSINOPHILS % (AUTO) 2.4 % (0.0-6.0); HEMATOCRIT 36 % (33-45); HEMOGLOBIN 11.8 g/dL (11.5-14.8); LYMPHOCYTES # (AUTO) 0.8 K/uL (0.8-4.8); LYMPHOCYTES % (AUTO) 13.1 % (20.0-44.0); MEAN CORPUSCULAR HGB CONC 33 g/dl (31.0-36.0); MEAN CORPUSCULAR VOLUME 96 fL (82-100); MONOCYTES # (AUTO) 0.8 K/uL (0.1-1.30); MONOCYTES % (AUTO) 13.7 % (2.0-12.0); NEUTROPHILS # (AUTO) 4.3 K/uL (1.8-8.9); NEUTROPHILS % (AUTO) 70.2 % (43.0-81.0); PLATELET COUNT (AUTO) 287 K/uL (150-450); RED BLOOD CELL COUNT(AUTO) 3.73 MIL/uL (4.0-5.2); WHITE BLOOD COUNT (AUTO) 6.1 K/uL (4.3-11.0)
[2022-11-12 20:27] LABS: CALCIUM, SERUM 9.2 mg/dL (8.5-10.1); CARBON DIOXIDE 28 mmol/L (21-32); CHLORIDE 107 mmol/L (98-107); CREATININE 0.7 mg/dL (0.6-1.3); GLUCOSE 110 mg/dL (74-106); POTASSIUM 4.3 mmol/L (3.5-5.1); SODIUM SERUM 140 mmol/L (136-145); UREA NITROGEN, BLOOD 27 mg/dL (7-18)
[2022-11-12] MEDS ORDERED: MAGNESIUM HYDROXIDE 30 ML UDC PO PRN (20:30)
[2022-11-12] MEDS ORDERED: hydrALAZINE HCL 25 MG TABLET PO PRN (20:30)
[2022-11-12] MEDS ORDERED: ACETAMINOPHEN ES 500 MG TABLET PO PRN (20:30)
[2022-11-12 20:32] LABS: ACETAMINOPHEN < 10 ug/ml (10-30); ALANINE AMINOTRANSFERASE 23 U/L (12-78); ALCOHOL, BLOOD < 3 mg/dL (0-0); ALKALINE PHOSPHATASE 68 U/L (46-116); ASPARTATE AMINOTRANSFERASE 15 U/L (15-37); BILIRUBIN,DIRECT 0.1 mg/dL (0.0-0.2); BILIRUBIN,TOTAL 0.2 mg/dL (0.2-1.0); TOTAL PROTEIN, SERUM 6.4 g/dL (6.4-8.2)
--- NOTE | 2022-11-12 21:40 | NUR ---
URINE SAMPLE SENT TO LAB
--- NOTE | 2022-11-12 22:04 | NUR ---
CALLED LAY OUT MAKER ENRRIQUE. NO ANSWER, LEFT VM.
--- NOTE | 2022-11-12 22:11 | NUR ---
SPOKE WITH PRINTER SLOTTER OPERATOR ENRRIQUE. AL 60 MIN FOR EVAL.
--- NOTE | 2022-11-12 23:30 | NUR ---
PATIENT ON HOLD 7806 GRAVELY DISABLED PERSON FORMS FILLED AND SIGNED BY ENRRIQUE LEEDICTAPHONE MECHANIC.
[2022-11-12 23:39] LABS: BILIRUBIN,URINE NEGATIVE (NEGATIVE); COLOR,URINE YELLOW (YELLOW); LEUKOCYTE ESTERASE ,URINE NEGATIVE (NEGATIVE); NITRITE, URINE NEGATIVE (NEGATIVE); PROTEIN,URINE NEGATIVE (NEGATIVE); UGLUCOSE NEGATIVE (NEGATIVE); UROBILINOGEN,URINE 0.2 EU/dL (0.2)
--- NOTE | 2022-11-13 00:02 | NUR ---
REPORT GIVEN TO TOYA WHITLEY ROOM 219-1 FOR ROLLY
--- NOTE | 2022-11-13 00:07 | NUR ---
SWAB FOR COVID19 SENT TO LAB
[2022-11-13] MEDS ORDERED: ONDANSETRON 4 MG TAB.RAPDIS PO PRN (00:30)
--- NOTE | 2022-11-13 01:30 | NUR ---
GPS ADMISSION NOTE,RECEIVED PATIENT FROM [facility] ARRIVED AT THIS UNIT AT 0130 VIA STRETCHER WITH 1 INSTITUTIONAL RESEARCH COORDINATOR ESCORT.PATIENT ADMITTED ON 5150 HOLD FOR GD.PER HOLD PATIENT BECAME EXTREMELY AGITATED,AGGRESSIVE AND VIOLENTLY REACTED.PATIENT IS INCAPABLE OF ARTICULATING PLAN OF SELF CARE.THE 5150 WAS REVIEWED AND THE DOCUMENTATION IN THE 5150 HOLD APPEARS TO REFLECT THE PRESENTATION OF THE PATIENT.UPON FACE TO FACE ASSESSMENT.PATIENT IS NOTED TO BEING HYPERVERBAL ,DISHEVELED ,DISORGANIZED,DEMANDING UNCOOPERATIVE AND NEEDS REDIRECTION.PATIENT IS CURRENTLY LYING IN BED,AWAKE HAS NO S/S OR COMPLAINT OF PAIN.PATIENT IS DISPLAYING NO S/S OF APPARENT DISTRESS.PATIENT BREATHING EVEN AND UNLABORED WITH EQUAL RISE AND FALL OF CHEST.PATIENT IS ALERT AND ORIENTED X1.ON ROOM AIR.PATIENT ASSISTED FOR TURNING AND REPOSITION Q2H AND PRN FOR COMFORT AND CIRCULATION.PATIENT HAS NO NEEDS AT THIS TIME.PATIENT DENIES SUICIDE IDEATIONS AND HOMICIDAL IDEATIONS AT THIS TIME.PATIENT REFUSED TO SIGN ANY PAPER WORK.PATIENT ADVISED OF HER HOLD AND PATIENT RIGHTS BOOKLET GIVEN.PATIENT IS UNDER THE PSYCHIATRIC CARE OF DR WEINBERG AND THE MEDICAL CARE OF DR. GRAHAM.PATIENT BELONGINGS WERE INVENTORIED AND CHECKED FOR CONTRABAND.ALL CONTRABAND REMOVED AND STORED IN PATIENT HALLWAY LOCKER.PATIENT ADVANCED DIRECTIVES PREFERENCE,IMMUNIZATIONS QUESTIONER,NECESSARY PAPERWORKS COMPLETED.PATIENT SKIN ASSESSMENT COMPLETED.PATIENT ORIENTATED TO ROOM.FLOOR,AND STAFF WITH ALL QUESTIONS ANSWERED.PATIENT EDUCATED TO THE USE OF THE CALL ALDANA.PATIENT BED SIDE RAILS UPX2 FOR SAFETY.PATIENT BED IS LOCKED,LOW AND WILL CONTINUE TO MONITOR THIS PATIENT Q15 MIN WITH THE HELP OF STAFF TO MAINTAIN SAFETY.
--- NOTE | 2022-11-13 01:40 | NUR ---
PT TRANSPORTED TO UNIT ON GURNEY WITH EMT AT BEDSIDE. PT IS IN STABEL CONDITION FOR TRANSPORT
[2022-11-13] MEDS ORDERED: MAGNESIUM HYDROXIDE 30 ML UDC PO PRN (02:00)
[2022-11-13] MEDS ORDERED: MAG HYDROX/AL HYDROX/SIMETH 30 ML UDC PO PRN (02:00)
[2022-11-13] MEDS ORDERED: ACETAMINOPHEN 325 MG TABLET PO PRN (02:00)
[2022-11-13] MEDS ORDERED: ZOLPIDEM TARTRATE 5 MG TABLET PO PRN (02:00)
[2022-11-13] MEDS ORDERED: BLOOD SUGAR DIAGNOSTIC 1 EACH STRIP IN ONE (02:30)
--- NOTE | 2022-11-13 07:30 | NUR ---
PT RECEIVED RESTING COMFORTABLY IN BED. NO S/S OR C/O PAIN OR DISTRESS NOTED. SIDE RAILS UP X2. WILL CONTINUE PLAN OF CARE
[2022-11-13 08:00] VITALS: BP 127/65
[2022-11-13] MEDS ORDERED: ZOLP5TAB8 PO (09:04)
[2022-11-13] MEDS ORDERED: QUET25TA PO (09:04)
[2022-11-13] MEDS ORDERED: LACT-246 PO (09:04)
[2022-11-13] MEDS ORDERED: ALLA266C2 TP (09:04)
[2022-11-13] MEDS ORDERED: ATOR10TA PO (09:04)
[2022-11-13] MEDS ORDERED: ESCI5TAB PO (09:04)
[2022-11-13] MEDS ORDERED: MAG30ORA PO (09:04)
[2022-11-13] MEDS ORDERED: LORA-259 PO (09:04)
[2022-11-13] MEDS: DOCUSATE SODIUM 100 MG CAPSULE PO SCH ×2 (09:23→17:25)
[2022-11-13] MEDS: LEVOTHYROXINE SODIUM 100 MCG TABLET PO SCH (09:23)
[2022-11-13] MEDS: LOSARTAN POTASSIUM 50 MG TABLET PO SCH (09:24)
[2022-11-13] MEDS: QUETIAPINE FUMARATE 25 MG TABLET PO SCH ×2 (12:12→21:28)
[2022-11-13] MEDS: ESCITALOPRAM OXALATE (10 MG) 10 MG TABLET PO SCH (12:13)
[2022-11-13 16:00] VITALS: BP 116/55
[2022-11-13] MEDS: SENNOSIDES 8.6 MG TABLET PO SCH (17:25)
[2022-11-13] MEDS: LORAZEPAM 0.5 MG TABLET PO PRN (17:25)
[2022-11-13 20:29] VITALS: BP 123/61
[2022-11-14 06:38] LABS: BASOPHILS % (AUTO) 0.7 % (0.0-2.0); EOSINOPHILS % (AUTO) 3.7 % (0.0-6.0); HEMATOCRIT 33 % (33-45); HEMOGLOBIN 10.9 g/dL (11.5-14.8); LYMPHOCYTES # (AUTO) 0.6 K/uL (0.8-4.8); LYMPHOCYTES % (AUTO) 11.3 % (20.0-44.0); MEAN CORPUSCULAR HGB CONC 33 g/dl (31.0-36.0); MEAN CORPUSCULAR VOLUME 96 fL (82-100); MONOCYTES # (AUTO) 0.8 K/uL (0.1-1.30); NEUTROPHILS # (AUTO) 3.9 K/uL (1.8-8.9); NEUTROPHILS % (AUTO) 70.3 % (43.0-81.0); PLATELET COUNT (AUTO) 259 K/uL (150-450); WHITE BLOOD COUNT (AUTO) 5.6 K/uL (4.3-11.0)
[2022-11-14 07:00] LABS: CALCIUM, SERUM 8.6 mg/dL (8.5-10.1); CARBON DIOXIDE 26 mmol/L (21-32); CHLORIDE 108 mmol/L (98-107); CREATININE 0.6 mg/dL (0.6-1.3); GLUCOSE 96 mg/dL (74-106); POTASSIUM 4.1 mmol/L (3.5-5.1); SODIUM SERUM 140 mmol/L (136-145); UREA NITROGEN, BLOOD 27 mg/dL (7-18)
[2022-11-14 07:03] LABS: CHOLESTEROL 145 mg/dL (<200); HDL CHOLESTEROL 67 mg/dL (40-60); LDL 79 mg/dL (0-99); TRIGLYCERIDES 36 mg/dL (30-150)
[2022-11-14 08:00] VITALS: BP 118/62
[2022-11-14] MEDS: LOSARTAN POTASSIUM 50 MG TABLET PO SCH (08:08)
[2022-11-14] MEDS: QUETIAPINE FUMARATE 25 MG TABLET PO SCH ×2 (08:08→20:27)
[2022-11-14] MEDS: DOCUSATE SODIUM 100 MG CAPSULE PO SCH ×2 (08:08→17:00)
[2022-11-14] MEDS: ESCITALOPRAM OXALATE (10 MG) 10 MG TABLET PO SCH (08:09)
[2022-11-14] MEDS: LEVOTHYROXINE SODIUM 100 MCG TABLET PO SCH (08:10)
--- NOTE | 2022-11-14 09:16 | NUR ---
BEV Initial Discharge Plan: Patient currently resides at [facility] [address] [place] [address]; ([phone]). BEV will contact pt's daughter Tracey ([phone]) who is DPOA to discuss treatment/discharge plan. BEV will work with the MD, family, and pt to help coordinate appropriate discharge.
--- NOTE | 2022-11-14 09:16 | NUR ---
Treatment Plan: Pt unable to sign treatment plan and was disorganized.
--- NOTE | 2022-11-14 09:17 | NUR ---
BEV Clinical Note: Pt placed on a 5150 hold for GD due to aggressive behavior at her facility. [place] [address]; ([phone]). BEV will contact pt's daughter Tracey ([phone]) who is DPOA to discuss treatment/discharge plan.
--- NOTE | 2022-11-14 09:58 | NUR ---
BEV Family Contact: BEV contacted pt's MCKENZIECRYSTAL Izaguirre ([phone]) and discussed treatment/discharge plan. Daughter stated that she would want pt to go to Memory Care unit in [place]. She stated she will go to the evolso to handle her finances. BEV will follow up on Monday.
[2022-11-14] MEDS: LORAZEPAM 0.5 MG TABLET PO PRN (13:51)
--- NOTE | 2022-11-14 13:55 | NUR ---
NURSE NOTE: PT ANXIOUS AT THIS TIME. RESTLESSLY MOVING FROM ROOM TO HALLWAY, PACING AND TRYING TO "FIX" THINGS. ATIVAN ADMINISTERED ORDERED. PT MARTIN WELL. WILL CONT TO MONITOR.
--- NOTE | 2022-11-14 14:55 | NUR ---
NURSE NOTE: PT CALM AT THIS TIME. ATIVAN EFFECTIVE AT THIS TIME. WILL CONT TO MONITOR.
[2022-11-14 16:00] VITALS: BP 109/55
[2022-11-14] MEDS: SENNOSIDES 8.6 MG TABLET PO SCH (17:30)
[2022-11-14 20:01] VITALS: BP 118/59
[2022-11-15 08:00] VITALS: BP 118/72
--- NOTE | 2022-11-15 08:23 | NUR ---
WOUND CARE CONSULT: PT PRESENTS WITH REDNESS/RASH TO INNER BUTTOCKS, PRESENT ON ADMISSION. RECOMMENDATIONS MADE FOR SKIN PROTECTION AND DISCUSSED WITH NURSING STAFF. MD IN AGREEMENT WITH PLAN OF CARE.
[2022-11-15] MEDS: DOCUSATE SODIUM 100 MG CAPSULE PO SCH ×2 (08:47→17:09)
[2022-11-15] MEDS: QUETIAPINE FUMARATE 25 MG TABLET PO SCH ×2 (08:47→20:16)
[2022-11-15] MEDS: LOSARTAN POTASSIUM 50 MG TABLET PO SCH (08:48)
[2022-11-15] MEDS: ESCITALOPRAM OXALATE (10 MG) 10 MG TABLET PO SCH (08:48)
[2022-11-15] MEDS: LEVOTHYROXINE SODIUM 100 MCG TABLET PO SCH (08:55)
[2022-11-15] MEDS: CLOTRIMAZOLE 1% 15 GM TUBE TP SCH ×2 (09:38→17:09)
--- NOTE | 2022-11-15 10:48 | NUR ---
BEV Family Contact: BEV contacted pt's JERRY Izaguirre ([phone]) she stated that she will fly pt out to [place], [place] on 11/22 at 9AM. She will be taking pt to [facility], pt is accepted.
--- NOTE | 2022-11-15 10:49 | NUR ---
Facility Contact: BEV spoke with Pati director from [facility] ([phone]) who stated pt is accepted. BEV faxed medication list signed by the doctors ([phone]).
[2022-11-15 16:00] VITALS: BP 115/62
[2022-11-15] MEDS: SENNOSIDES 8.6 MG TABLET PO SCH (17:09)
[2022-11-15 20:18] VITALS: BP 109/57
[2022-11-16 08:00] VITALS: BP 133/61
[2022-11-16] MEDS: QUETIAPINE FUMARATE 25 MG TABLET PO SCH ×2 (08:24→21:27)
[2022-11-16] MEDS: LEVOTHYROXINE SODIUM 100 MCG TABLET PO SCH (08:24)
[2022-11-16] MEDS: ESCITALOPRAM OXALATE (10 MG) 10 MG TABLET PO SCH (08:24)
[2022-11-16] MEDS: DOCUSATE SODIUM 100 MG CAPSULE PO SCH ×2 (08:24→16:12)
[2022-11-16] MEDS: LOSARTAN POTASSIUM 50 MG TABLET PO SCH (08:25)
[2022-11-16] MEDS: CLOTRIMAZOLE 1% 15 GM TUBE TP SCH ×2 (09:37→16:26)
[2022-11-16 16:00] VITALS: BP 109/69
[2022-11-16] MEDS: SENNOSIDES 8.6 MG TABLET PO SCH (18:04)
[2022-11-16 20:16] VITALS: BP 128/97
[2022-11-17 08:00] VITALS: BP 116/67
[2022-11-17] MEDS: DOCUSATE SODIUM 100 MG CAPSULE PO SCH ×2 (08:48→16:59)
[2022-11-17] MEDS: LEVOTHYROXINE SODIUM 100 MCG TABLET PO SCH (08:48)
[2022-11-17] MEDS: LOSARTAN POTASSIUM 50 MG TABLET PO SCH (08:49)
[2022-11-17] MEDS: QUETIAPINE FUMARATE 25 MG TABLET PO SCH ×2 (08:49→21:21)
[2022-11-17] MEDS: ESCITALOPRAM OXALATE (10 MG) 10 MG TABLET PO SCH (08:49)
[2022-11-17] MEDS: CLOTRIMAZOLE 1% 15 GM TUBE TP SCH ×2 (09:35→17:22)
[2022-11-17] MEDS: LORAZEPAM 0.5 MG TABLET PO PRN (14:44)
--- NOTE | 2022-11-17 14:45 | NUR ---
RN-NOTES NOTED PATIENT VERY ANXIOUS,UNABLE TO SIT STILL IN HER ROOM,REDIRECTED AND ATIVAN 0.5MG P.O GIVEN PRN ORDER. WILL CONT. MONITORING FOR SAFETY AND BEHAVIOR.
--- NOTE | 2022-11-17 15:45 | NUR ---
RN-NOTES PATIENT IN THE ROOM SITTING IN BED QUIET,A/O X1 CALM,NO ACUTE DISTRESS NOTED.
[2022-11-17 16:00] VITALS: BP 110/65
[2022-11-17] MEDS: SENNOSIDES 8.6 MG TABLET PO SCH (17:28)
--- NOTE | 2022-11-17 18:54 | NUR ---
RN-NOTES PATIENT VISIBLE IN THE UNIT GUARDED A/OX1, FLAT AFFECT,NO ACUTE DISTRESS NOTED.COMPLIANT WITH MEDICATIONS. NEEDS MINIMAL ASSIST WITH ADL'S. AMBULATORY STEADY GAIT.ALL NEEDS ATTENDED AND ANTICIPATED. WILL CONT. MONITORING FOR SAFETY AND BEHAVIOR.WILL ENDORSE TPO INCOMING NURSE FOR THE CONTINUITY OF CARE.
[2022-11-17 20:32] VITALS: BP 109/62
--- NOTE | 2022-11-18 06:39 | NUR ---
GENERAL HANDLING SUPERVISOR NOTES: PATIENT SLEEPING IN HER ROOM. EASILY AROUSABLE. CALM. BREATHING EVEN AND UNLABORED. NO ACUTE DISTRESS NOTED. NO C/O PAIN AT THIS TIME. MEDICATION COMPLIANT. COOPERATIVE. PATIENT HAD X4 EPISODES OF DIARRHEA AT THE BEGINNING OF THE SHIFT. NO OTHER EPISODES NOTED. WILL ENDORSE TO ONCOMING SHIFT TO MONITOR. ALL NEEDS ANTICIPATED AND ATTENDED. WILL ENDORSE TO ONCOMING SHIFT FOR CONTINUITY OF CARE.
[2022-11-18] MEDS: LEVOTHYROXINE SODIUM 100 MCG TABLET PO SCH (07:59)
[2022-11-18 08:00] VITALS: BP 112/62
[2022-11-18] MEDS: DOCUSATE SODIUM 100 MG CAPSULE PO SCH ×2 (08:34→16:39)
[2022-11-18] MEDS: CLOTRIMAZOLE 1% 15 GM TUBE TP SCH ×2 (08:34→16:40)
[2022-11-18] MEDS: ESCITALOPRAM OXALATE (10 MG) 10 MG TABLET PO SCH (08:34)
[2022-11-18] MEDS: LOSARTAN POTASSIUM 50 MG TABLET PO SCH (08:35)
[2022-11-18] MEDS: QUETIAPINE FUMARATE 25 MG TABLET PO SCH ×2 (08:35→21:36)
--- NOTE | 2022-11-18 11:47 | NUR ---
Court Hearing: Patient's court hearing for 3250 was today and it was upheld for GD.
--- NOTE | 2022-11-18 11:47 | NUR ---
Court Notification: BEV contacted pt's JERRY Izaguirre ([phone]) to notify of 5250 hearing.
[2022-11-18] MEDS: LORAZEPAM 0.5 MG TABLET PO PRN (14:57)
--- NOTE | 2022-11-18 15:00 | NUR ---
RN-NOTES NOTED PATIENT VERY ANXIOUS WANDERING TO OTHER ROOM,REDIRECTED AND REORIENTED PATIENT. ATIVAN 0.5MG P.O GIVEN PRN ORDER. WILL CONT. MONITORING FOR SAFETY AND BEHAVIOR.
[2022-11-18 16:00] VITALS: BP 114/61
--- NOTE | 2022-11-18 17:15 | NUR ---
RN-NOTES PATIENT VISIBLE IN THE UNIT GUARDED A/OX1, FLAT AFFECT,NO ACUTE DISTRESS NOTED.EPISODE OF WONDERING TO OTHER ROOMS. REDIRECTED AND REORIENTED .COMPLIANT WITH MEDICATIONS. NEEDS MINIMAL ASSIST WITH ADL'S. AMBULATORY STEADY GAIT.ALL NEEDS ATTENDED AND ANTICIPATED. WILL CONT. MONITORING FOR SAFETY AND BEHAVIOR.WILL ENDORSE TPO INCOMING NURSE FOR THE CONTINUITY OF CARE.
[2022-11-18] MEDS: SENNOSIDES 8.6 MG TABLET PO SCH (17:53)
--- NOTE | 2022-11-18 19:30 | NUR ---
GPS RN NOTE, RECEIVED PATIENT AWAKE AND IN BED, NO S/S OR COMPLAINTS OF PAIN AT THIS TIME. PATIENT IS DISPLAYING NO S/S OF APPARENT DISTRESS AT THIS TIME. PATIENT BREATHING IS UNLABORED WITH EQUAL RISE AND FALL OF THE CHEST. PATIENT IS ALERT AND ORIENTED X 1 -2 ON ROOM AIR WITH A SPO2 97%. PATIENT IS COMPLIANT WITH MEDICATIONS, PARANOID, ANXIOUS AT TIMES, MAKES NEEDS KNOWN, AND UNCOOPERATIVE. PATIENT DENIES SUICIDAL AND HOMICIDAL IDEATIONS AT THIS TIME. PATIENT ASSISTED WITH TURNING AND REPOSITIONING Q2HR AND PRN FOR COMFORT AND CIRCULATION. PATIENT HAS NO NEEDS AT THIS TIME. PATIENT EDUCATED ON THE USE OF THE CALL ALDANA. PATIENT BED SIDE RAILS UP X 2 FOR SAFETY. PATIENT BED IS LOCKED, LOW, WITH BED ALARM ON. WILL CONTINUE TO MONITOR THIS PATIENT Q15 MINUTES WITH THE HELP OF STAFF TO MAINTAIN SAFETY.
[2022-11-18 20:00] VITALS: BP 113/59
[2022-11-19 08:00] VITALS: BP_SYST 112; BP_SYST 91; BP_DIAS 53; BP_DIAS 60
[2022-11-19] MEDS: QUETIAPINE FUMARATE 25 MG TABLET PO SCH ×2 (08:52→21:41)
[2022-11-19] MEDS: DOCUSATE SODIUM 100 MG CAPSULE PO SCH ×2 (08:52→16:25)
[2022-11-19] MEDS: ESCITALOPRAM OXALATE (10 MG) 10 MG TABLET PO SCH (08:52)
[2022-11-19] MEDS: ENSURE ENLIVE 237 ML LIQUID (VANILLA) PO SCH (08:52)
[2022-11-19] MEDS: LOSARTAN POTASSIUM 50 MG TABLET PO SCH (08:52)
[2022-11-19] MEDS: LEVOTHYROXINE SODIUM 100 MCG TABLET PO SCH (08:52)
[2022-11-19] MEDS: Z GUARD REMEDY 4 OZ OINT TP PRN ×2 (09:00→16:30)
[2022-11-19] MEDS: CLOTRIMAZOLE 1% 15 GM TUBE TP SCH ×2 (09:00→16:29)
--- NOTE | 2022-11-19 09:30 | NUR ---
RN Notes: Received pt. awake in bed, pleasant upon approached and responsive to staffs. Ate 100% for breakfast and compliant on meds. Morning care applied and skin ointment applied. Encouraged to verbalize feelings and reoriented to person, day, place, date and situation. Needs attended and will continue to monitor for safety.
[2022-11-19] MEDS: LORAZEPAM 0.5 MG TABLET PO PRN (14:01)
--- NOTE | 2022-11-19 14:03 | NUR ---
Pt. is anxious and irritable. Ativan po prn given and pt. is compliant.
[2022-11-19 16:23] VITALS: BP 111/61
[2022-11-19] MEDS: SENNOSIDES 8.6 MG TABLET PO SCH (18:45)
--- NOTE | 2022-11-19 19:30 | NUR ---
GPS RN NOTE, RECEIVED PATIENT AWAKE AND IN BED, NO S/S OR COMPLAINTS OF PAIN AT THIS TIME. PATIENT IS DISPLAYING NO S/S OF APPARENT DISTRESS AT THIS TIME. PATIENT BREATHING IS UNLABORED WITH EQUAL RISE AND FALL OF THE CHEST. PATIENT IS ALERT AND ORIENTED X 1 -2 ON ROOM AIR WITH A SPO2 94%. PATIENT IS COMPLIANT WITH MEDICATIONS, PARANOID, ANXIOUS AT TIMES, MAKES NEEDS KNOWN, AND COOPERATIVE. PATIENT DENIES SUICIDAL AND HOMICIDAL IDEATIONS AT THIS TIME. PATIENT ASSISTED WITH TURNING AND REPOSITIONING Q2HR AND PRN FOR COMFORT AND CIRCULATION. PATIENT HAS NO NEEDS AT THIS TIME. PATIENT EDUCATED ON THE USE OF THE CALL ALDANA. PATIENT BED SIDE RAILS UP X 2 FOR SAFETY. PATIENT BED IS LOCKED, LOW, WITH BED ALARM ON. WILL CONTINUE TO MONITOR THIS PATIENT Q15 MINUTES WITH THE HELP OF STAFF TO MAINTAIN SAFETY.
[2022-11-19 20:58] VITALS: BP 132/61
[2022-11-20 08:00] VITALS: BP 112/71
[2022-11-20] MEDS: DOCUSATE SODIUM 100 MG CAPSULE PO SCH (11:00)
[2022-11-20] MEDS: LEVOTHYROXINE SODIUM 100 MCG TABLET PO SCH (11:01)
[2022-11-20] MEDS: ESCITALOPRAM OXALATE (10 MG) 10 MG TABLET PO SCH (11:01)
[2022-11-20] MEDS: LOSARTAN POTASSIUM 50 MG TABLET PO SCH (11:02)
[2022-11-20] MEDS: QUETIAPINE FUMARATE 25 MG TABLET PO SCH ×2 (11:09→21:32)
[2022-11-20] MEDS: CLOTRIMAZOLE 1% 15 GM TUBE TP SCH ×2 (11:18→16:14)
[2022-11-20] MEDS: ENSURE ENLIVE 237 ML LIQUID (VANILLA) PO SCH (11:18)
[2022-11-20 16:00] VITALS: BP 106/57
[2022-11-20 20:32] VITALS: BP 112/63
[2022-11-21 08:00] VITALS: BP 102/59
[2022-11-21] MEDS: QUETIAPINE FUMARATE 25 MG TABLET PO SCH ×2 (08:19→21:26)
[2022-11-21] MEDS: LEVOTHYROXINE SODIUM 100 MCG TABLET PO SCH (08:19)
[2022-11-21] MEDS: ENSURE ENLIVE 237 ML LIQUID (VANILLA) PO SCH (08:20)
[2022-11-21] MEDS: LOSARTAN POTASSIUM 50 MG TABLET PO SCH (08:20)
[2022-11-21] MEDS: ESCITALOPRAM OXALATE (10 MG) 10 MG TABLET PO SCH (08:20)
[2022-11-21] MEDS: CLOTRIMAZOLE 1% 15 GM TUBE TP SCH ×2 (09:42→17:20)
--- NOTE | 2022-11-21 13:49 | NUR ---
RN-CO: DAUGHTER JENNIFER CAME AND TOOK PT'S PRESCRIPTION FOR PSYCH.
[2022-11-21 16:00] VITALS: BP 113/50
[2022-11-21 20:48] VITALS: BP 128/73
[2022-11-22 08:00] VITALS: BP 138/62
--- NOTE | 2022-11-22 08:03 | NUR ---
Discharge Note: Patients daughter JERRY Izaguirre ([phone]) will picket [employer] union patient at 9AM. Patient will be flying to [facility] with daughter to [place], [place]. Daughter has found patient [facility] located at [address] [place] [address]; . SW has spoke to Pati, Director [phone] who stated that pt is welcomed to the facility. Patient was given resources: [employer]: Thad Orourke DO, MBA, MS; . [facility] Psychiat[facility]; . Stephen Naylor MD; .
[2022-11-22] MEDS: LEVOTHYROXINE SODIUM 100 MCG TABLET PO SCH (08:24)
[2022-11-22 08:25] VITALS: BP 138/62
[2022-11-22] MEDS: LOSARTAN POTASSIUM 50 MG TABLET PO SCH (08:25)
[2022-11-22] MEDS: ESCITALOPRAM OXALATE (10 MG) 10 MG TABLET PO SCH (08:25)
[2022-11-22] MEDS: QUETIAPINE FUMARATE 25 MG TABLET PO SCH (08:25)
[2022-11-22] MEDS: CLOTRIMAZOLE 1% 15 GM TUBE TP SCH (08:26)
[2022-11-22] MEDS: ENSURE ENLIVE 237 ML LIQUID (VANILLA) PO SCH (08:27)
--- NOTE | 2022-11-22 09:16 | NUR ---
82 YEAR OLD FEMALE DISCHARGED TO DAUGHTER IN STABLE CONDITION. COMPLIANT WITH MEDICATIONS, COOPERATIVE WITH TREATMENT PLANS. PATIENT DENIES SI/HI AND INSTRUCTED TO GO TO THE CLOSEST ER IF DEVELOPING SI/HI. BEHAVIOR IMPROVED, PSYCHIATRIC TX PLAN MET, MEDICAL TX PLAN DEFERRED FOR CONTINUAL MONITORING. EDUCATED PT ABOUT AFTER CARE PLAN AND COPY PROVIDED. RETURNED PERSONAL BELONGINGS TO PT. MEDICATION RECONCILED WITH PYSHIATRIST AND MEDICAL DOCTOR REPORT GIVEN TO DAUGHTER PT SIGNED DISCHARGE PAPERWORK WOUND PICTURE REFUSED PT LEFT THE UNIT AT 0910 WITH DAUGHTER
== END 2022-11-22 09:15 | DRG 881 ==
LOC: ER 19:23 → GPS 23:59
PROVIDERS: ADMIT Psychiatry & Neurology Psychiatry; ATTEND Nurse Practitioner Acute Care
DX: F32.A Depression, unspecified (principal); F03.93 Unspecified dementia, unspecified severity, with mood disturbance; F03.918 Unspecified dementia, unspecified severity, with other behavioral disturbance; F03.92 Unspecified dementia, unspecified severity, with psychotic disturbance; E44.0 Moderate protein-calorie malnutrition; R64 Cachexia; F03.94 Unspecified dementia, unspecified severity, with anxiety; I10 Essential (primary) hypertension; E03.9 Hypothyroidism, unspecified; E88.09 Other disorders of plasma-protein metabolism, not elsewhere classified; Z87.440 Personal history of urinary (tract) infections; Z68.20 Body mass index [BMI] 20.0-20.9, adult; Z20.822 Contact with and (suspected) exposure to COVID-19
CPT/HCPCS: 36415; 80048-TC; 80061-TC; 80076-TC; 82962-TC; 85025-TC; 87081-TC; 97112-TC; 97116-TC; 97530-TC; G0480